=== PATIENT | female | born 1980 | race Caucasian/White ===

== ENCOUNTER 2021-12-20 09:44 | Outpatient (CLI) | payer OTHER, SELFPAY ==
--- NOTE | ~2021-12-20 | MM_ITS ---
EXAMINATION: MM screening [facility] [place] HISTORY: Screening mammogram TECHNIQUE: Craniocaudal and mediolateral oblique 3-D tomosynthesis images were obtained and synthetic 2-D images were generated. Bilateral rotated lateral CC views. CAD analysis was submitted and interp reted. COMPARISON: No prior mammogram is available for comparison at this institution. BREAST PARENCHYMAL COMPOSITION: The breasts are heterogeneously dense, which may obscure small masses . FINDINGS: There is no evidence of suspicious mass, calcification, or architectural distortion to sugg est malignancy in either breast. There has been no suspicious interval change. IMPRESSION: 1. No mammographic evidence of malignancy. 2. Recommend routine screening mammography in one year. BI-RADS Category 1: Negative Reviewed, dictated and finalized at location A.
== END 2021-12-20 09:45 | disposition home or self-care (01) ==
LOC: ANHIMG 09:47
PROVIDERS: Visit Provider Obstetrics & Gynecology
DX: Z12.31 Encounter for screening mammogram for malignant neoplasm of breast (principal)
CPT/HCPCS: 77063; 77067

== ENCOUNTER → 2023-05-15 10:20 | Outpatient (CLI) | payer OTHER, SELFPAY ==
--- NOTE | ~2023-05-15 | US_ITS ---
EXAMINATION: US pelvic complete w TV DATE: 05/15/2023 10:55 INDICATION: Intra-abdominal and pelvic swelling. Spotting. TECHNIQUE: Multiple transabdominal and transvaginal sonographic images of the pelvis were obtained. COMPARISON: None. FINDINGS: TRANSABDOMINAL ULTRASOUND: The uterus measures 6.2 x 3.1 x 4.1 cm. There is physiologic free fluid in the pelvis. TRANSVAGINAL ULTRASOUND: The endometrial complex measures 3 mm in thickness. In the right adnexa, there is a 19.6 x 13.1 x 17. 9 cm mass of mixed echogenicity without visible internal vascular flow. The ovaries are not visualize d. IMPRESSION: 1. 19.6 cm mass in the right adnexa, likely of ovarian origin. This finding is suspicious for neoplas m. Surgical consultation is recommended. Reviewed, dictated and finalized at location A. IMPRESSION: 1. 19.6 cm mass in the right adnexa, likely of ovarian origin. This finding is suspicious for neoplasm. Surgical consultation is recommended.
== END ==
PROVIDERS: PCP Registered Nurse; Visit Provider Registered Nurse
DX: R19.00 Intra-abdominal and pelvic swelling, mass and lump, unspecified site (principal)
CPT/HCPCS: 76830; 76856

== ENCOUNTER 2023-05-17 10:16 | Outpatient (CLI) | payer OTHER, SELFPAY ==
[2023-05-20 02:10] LABS: CA-125 11 U/mL (<35)
== END 2023-05-17 10:17 | disposition home or self-care (01) ==
LOC: ANHLAB 10:17
PROVIDERS: PCP Registered Nurse; Visit Provider Registered Nurse
DX: N83.8 Other noninflammatory disorders of ovary, fallopian tube and broad ligament (principal)
CPT/HCPCS: 36415; 86304